=== PATIENT | male | born 1975 | race Caucasian/White ===

== ENCOUNTER 2020-11-13 00:23 | Emergency (ER) | payer OTHER ==
[~2020-11-13] VITALS: Ht 182.9 cm; Wt 99.8 kg
[2020-11-13] MEDS ORDERED: PROP10 PO (01:05)
[2020-11-13] MEDS ORDERED: TRAZ100 PO (01:05)
[2020-11-13] MEDS ORDERED: PRAZ5 PO (01:06)
== END 2020-11-13 01:12 | disposition home or self-care (01) ==
LOC: ER 00:23
DX: F31.9 Bipolar disorder, unspecified (principal); Z79.899 Other long term (current) drug therapy